=== PATIENT | female | born 1995 | race Two or more races ===

== ENCOUNTER 2023-05-16 11:45 | Emergency (ER) | payer OTHER ==
[~2023-05-16] VITALS: Ht 162.6 cm; Wt 53.5 kg
[2023-05-16 12:39] LABS: HEMATOCRIT 36.7 % (36.0-45.00); HEMOGLOBIN 12.3 g/dL (12.0-15.00); MEAN CELL VOLUME 90.1 fL (80.00-100.00); MEAN CORPUSCULAR HEMOGLOBIN 30.3 pg (27.00-32.0); MEAN CORPUSCULAR HGB CONC 33.7 g/dl (32.0-36.0); PLATELET COUNT 162 K/uL (150-450); RED BLOOD COUNT 4.07 M/uL (4.00-6.00); RED CELL DISTRIBUTION WIDTH 13.3 % (11.5-14.5)
[2023-05-16] MEDS ORDERED: ZITHROMAX500 MG PO (13:35)
[2023-05-16] MEDS ORDERED: TUSNEL LIQUID178 ML PO (13:35)
== END 2023-05-16 13:44 | disposition home or self-care (01) ==
LOC: ER 11:45
PROVIDERS: General Practice
DX: J06.9 Acute upper respiratory infection, unspecified (principal); Z20.822 Contact with and (suspected) exposure to COVID-19
CPT/HCPCS: 36415; 96372; 99284; J1100